=== PATIENT | male | born 1945 | race Caucasian/White ===

== ENCOUNTER 2018-06-28 12:19 | Emergency (ER) | payer MEDICARE, MEDICAID ==
[~2018-06-28] VITALS: Ht 172.7 cm; Wt 75.0 kg
[2018-06-28] MEDS ORDERED: OMEP10CA4 PO (12:24)
[2018-06-28] MEDS ORDERED: METO-396 PO (12:24)
[2018-06-28] MEDS ORDERED: BENA5TAB6 PO (12:24)
[2018-06-28] MEDS ORDERED: ASPI-1158 PO (12:24)
[2018-06-28] MEDS ORDERED: ATOR20TA65 PO (12:24)
[2018-06-28] MEDS ORDERED: PROPOFOL 200MG/20ML VIAL IV ONE (15:00)
[2018-06-28] MEDS ORDERED: FENTANYL CITRATE/PF 50MCG/ML 2ML VIAL IV ONE (15:00)
[2018-06-28] MEDS ORDERED: FENTANYL CITRATE/PF 50MCG/ML 2ML VIAL ONE (16:13)
[2018-06-28 18:31] VITALS: BP 132/69
== END 2018-06-28 18:38 | disposition home or self-care (01) ==
LOC: ER 13:22
DX: T84.021A Dislocation of internal left hip prosthesis, initial encounter (principal); M06.9 Rheumatoid arthritis, unspecified; E78.00 Pure hypercholesterolemia, unspecified; I10 Essential (primary) hypertension; Z96.653 Presence of artificial knee joint, bilateral; Z96.698 Presence of other orthopedic joint implants; Z96.643 Presence of artificial hip joint, bilateral; Z95.2 Presence of prosthetic heart valve; Z79.899 Other long term (current) drug therapy; X58.XXXA Exposure to other specified factors, initial encounter; Y93.89 Activity, other specified; Y92.89 Other specified places as the place of occurrence of the external cause; Y99.8 Other external cause status
CPT/HCPCS: 27250; 73501; 73502; 73560; 99152; 99153; 99285; J3010; J2704; L1830